=== PATIENT | male | born 1995 | race Caucasian/White ===

== ENCOUNTER 2018-09-11 19:27 | Emergency (ER) | payer OTHER ==
[2018-09-11] MEDS: HYDROMORPHONE HCL 0.5 MG/ 0.5 ML SYRINGE (J1170 PER 1) IM (22:06)
[2018-09-11] MEDS ORDERED: BUPIVACAINE HCL 0.5% 10 ML VIAL As Ordered (22:38)
[2018-09-11] MEDS: BUPIVACAINE HCL 0.5% 30 ML VIAL SC (22:40)
[2018-09-11] MEDS: ceFAZolin 1GM INJ (J0690 PER 500MG) IM (22:41)
[2018-09-11] MEDS: NORCO 5/325MG TABLET (BULK FOR ED) PO (23:38)
== END 2018-09-11 23:42 | disposition home or self-care (01) ==
LOC: M ED 19:27
DX: S62.662A Nondisplaced fracture of distal phalanx of right middle finger, initial encounter for closed fracture (principal); S62.664A Nondisplaced fracture of distal phalanx of right ring finger, initial encounter for closed fracture; S60.131A Contusion of right middle finger with damage to nail, initial encounter; S60.141A Contusion of right ring finger with damage to nail, initial encounter; W23.0XXA Caught, crushed, jammed, or pinched between moving objects, initial encounter; Y92.89 Other specified places as the place of occurrence of the external cause; Y99.0 Civilian activity done for income or pay; Z87.891 Personal history of nicotine dependence
CPT/HCPCS: J0690

== ENCOUNTER 2020-09-17 19:52 | Emergency (ER) | payer OTHER ==
[~2020-09-17] VITALS: Ht 182.9 cm; Wt 79.5 kg
[~2020-09-17 19:52] MED LIST: KEFL500C17 PO; VICO5TAB17 PO
[2020-09-17] MEDS ORDERED: NAPR-885 PO (20:00)
[2020-09-17] MEDS ORDERED: VITMTA PO (20:00)
[2020-09-17] MEDS ORDERED: ACET-683 PO (20:00)
--- NOTE | 2020-09-17 20:52 | REPVR ---
PROCEDURE INFORMATION: Exam: US Scrotum and US Duplex Artery and Vein, Scrotum, Complete Exam date and time: 09/17/2020 8:39 PM Age: 25 years old Clinical indication: Scrotum pain; Additional info: Right testicular pain TECHNIQUE: Imaging protocol: Real-time ultrasound of the scrotum. Real-time duplex ultrasound scan of the arterial and venous flow of the scrotum with B-mode, color Doppler flow and spectral waveform analysis. Complete exam. Duplex images required to evaluate vascular conditions. COMPARISON: No relevant prior studies available. FINDINGS: Right testicle: The right testicle is normal in appearance. No testicular mass or lesion is noted. The right testicle measures 4.9 cm x 2.4 cm x 2.7 cm. The arterial and venous color Doppler flow and spectral waveforms within the right testicle are within normal limits. There is no evidence for right testicular torsion or orchitis. Left testicle: The left testicle is normal in appearance. No testicular mass or lesion is noted. The left testicle measures 5 cm x 2.1 cm x 2.5 cm. The arterial and venous color Doppler flow and spectral waveforms within the left testicle are within normal limits. There is no evidence for left testicular torsion or orchitis. Epididymides: The body and tail of the right epididymis are heterogeneous with increased color Doppler blood flow, which is compatible with right epididymitis. There is a 7 mm x 5 mm x 6 mm cyst in the head of the right epididymis. The left epididymis is normal in appearance. Scrotum: There is a small amount of fluid in the right scrotal sac. IMPRESSION: 1. Right epididymitis. 2. Normal testicles. No testicular torsion or orchitis. Electronically signed by: Jonathan Henriquez On 09/17/2020 20:53:02 PM
[2020-09-17 21:50] LABS: CHLAMYDIA DNA AMPLIFICATION NEGATIVE (NEGATIVE); GC DNA AMPLIFICATION NEGATIVE (NEGATIVE)
[2020-09-17] MEDS ORDERED: LEVO500T3 PO (22:08)
[2020-09-17 22:15] VITALS: BP 121/74
[2020-09-17] MEDS ORDERED: LevoFLOXacin 500 MG TABLET PO ONE (22:15)
== END 2020-09-17 22:16 | disposition home or self-care (01) ==
LOC: M ED 19:52
DX: N45.1 Epididymitis (principal)